=== PATIENT | male | born 1950 | race Caucasian/White ===

== ENCOUNTER 2017-03-09 09:53 | Inpatient (IN) | payer OTHER ==
[~2017-03-09] VITALS: Ht 177.8 cm; Wt 101.4 kg
[~2017-03-09 09:53] MED LIST: CELEBREX PO; EPINEPHRINE 1 MG/ML, 1ML ONE; GINGER PO; IBUP200T64 PO; KETOROLAC 60 MG/2 ML ONE; KRIL1CAP23 PO; ROPIvacaine/PF 0.2%, 20 ML ONE; ROPivacaine/PF 0.2%, 10 ML ONE; SODIUM CHLORIDE 0.9% 100 ML ONE; TRANEXAMIC ACID 100 MG/ML, 10ML ONE; TURMERIC PO; VITAMIN B12 PO; [UNRECOGNIZED DRUG - OTHER] PO; [UNRECOGNIZED DRUG - OTHER] PO
[2017-03-09 10:21] VITALS: BP 167/87
[2017-03-09] MEDS ORDERED: LACTATED RINGERS 1,000 ML IV SCH (10:21)
[2017-03-09] MEDS ORDERED: CELE200C PO (10:21)
[2017-03-09] MEDS ORDERED: TRAM50TA2 PO (10:27)
[2017-03-09] MEDS ORDERED: GABA300C10 PO (10:27)
[2017-03-09] MEDS ORDERED: VANCOMYCIN PER PHARMACY MC PRN (11:00)
[2017-03-09] MEDS ORDERED: VANCOMYCIN 1,800 MG in SODIUM CHLORIDE 0.9% 250 ML IV ONE (11:00)
[2017-03-09] MEDS ORDERED: MIDAZOLAM 1 MG/ML, 2ML ONE ×2 (12:53→13:01)
[2017-03-09] MEDS ORDERED: FENTANYL PF 100 MCG/2ML ONE ×3 (12:53→16:57)
[2017-03-09] MEDS ORDERED: FENTANYL PF 250 MCG/5ML ONE (13:01)
[2017-03-09] MEDS ORDERED: DEXAMETHASONE 4 MG/ML, 1ML ONE (13:01)
[2017-03-09] MEDS ORDERED: SUCCINYLCHOLINE 20 MG/ML, 10ML ONE (13:01)
[2017-03-09] MEDS ORDERED: ROCURONIUM 10 MG/ML,10ML ONE (13:01)
[2017-03-09] MEDS ORDERED: CEFAZOLIN 1,000 MG ONE (13:01)
[2017-03-09] MEDS ORDERED: PROPOFOL 10 MG/ML, 20ML ONE (13:01)
[2017-03-09] MEDS ORDERED: ONDANSETRON 2MG/ML, 2ML ONE ×2 (13:01→17:26)
[2017-03-09] MEDS ORDERED: hydrALAzine 20 MG/ML, 1ML IV PRN (16:00)
[2017-03-09] MEDS ORDERED: ONDANSETRON 2MG/ML, 2ML IVPush PRN (16:00)
[2017-03-09] MEDS ORDERED: OXYcodone 5 MG/5 ML ORAL.SOL UDC PO PRN (16:00)
[2017-03-09] MEDS ORDERED: HYDROmorphone 1 MG/ML, 1ML IV PRN ×2 (16:00→17:00)
[2017-03-09] MEDS ORDERED: METOCLOPRAMIDE 5 MG/ML, 2ML IV PRN (16:00)
[2017-03-09] MEDS ORDERED: LABETALOL 5MG/ML, 20ML IV PRN (16:00)
[2017-03-09] MEDS ORDERED: ACETAMINOPHEN 325 MG TABLET PO PRN (16:00)
[2017-03-09] MEDS: D5%-0.45% NACL 1,000 ML IV SCH ×2 (16:38→23:18)
[2017-03-09] MEDS ORDERED: OXYcodone 5 MG/5 ML ORAL.SOL UDC ONE (16:57)
[2017-03-09] MEDS ORDERED: SENNA/DOCUSATE TABLET PO PRN (17:00)
[2017-03-09] MEDS ORDERED: ONDANSETRON 4 MG TABLET PO PRN (17:00)
[2017-03-09] MEDS ORDERED: MAGNESIUM HYDROXIDE 8%, 30ML UDC PO PRN (17:00)
[2017-03-09] MEDS: OXYcodone IR 5MG TABLET PO SCH ×2 (17:00→21:00)
[2017-03-09] MEDS ORDERED: PROMETHAZINE 12.5 MG SUPP PR PRN (17:00)
[2017-03-09] MEDS ORDERED: ZOLPIDEM 5MG TABLET PO PRN (17:00)
[2017-03-09] MEDS ORDERED: DIAZEPAM 5 MG TABLET PO PRN (17:00)
[2017-03-09] MEDS ORDERED: ONDANSETRON 2MG/ML, 2ML IV PRN (17:00)
[2017-03-09] MEDS ORDERED: BISACODYL 10 MG SUPP PR PRN (17:00)
[2017-03-09] MEDS ORDERED: PROMETHAZINE 25 MG/ML, 1ML IM PRN (17:00)
[2017-03-09] MEDS ORDERED: OXYcodone IR 5MG TABLET PO PRN (17:00)
[2017-03-09] MEDS ORDERED: ALUMINUM/MAG/SIMETHICONE 30 ML UDC PO PRN (17:00)
[2017-03-09] MEDS ORDERED: TRANEXAMIC ACID 2,000 MG in SODIUM CHLORIDE 0.9% 100 ML IVPB ONE (17:15)
[2017-03-09] MEDS: TAMSULOSIN 0.4 MG CAP.ER.24H PO SCH (17:15)
[2017-03-09] MEDS: FENTANYL PF 100 MCG/2ML IV PRN ×2 (17:19→17:30)
[2017-03-09 19:21] VITALS: BP 136/77
[2017-03-09] MEDS: CEFAZOLIN PMX 2GM/50ML 50 ML IVPB SCH (20:29)
[2017-03-09] MEDS: ACETAMINOPHEN 500 MG TABLET PO SCH (20:29)
[2017-03-09] MEDS: ASPIRIN 81 MG TABLET EC PO SCH (20:29)
[2017-03-09] MEDS: DOCUSATE 100 MG CAPSULE PO SCH (20:29)
[2017-03-10] VITALS: BP 120/61
[2017-03-10] MEDS: OXYcodone IR 5MG TABLET PO SCH ×4 (01:02→13:00)
[2017-03-10] MEDS: ACETAMINOPHEN 500 MG TABLET PO SCH ×3 (04:17→20:00)
[2017-03-10] MEDS: CEFAZOLIN PMX 2GM/50ML 50 ML IVPB SCH (04:17)
[2017-03-10] MEDS ORDERED: DEXAMETHASONE 4 MG/ML, 1ML IVPush SCH (06:00)
[2017-03-10] MEDS: ASPIRIN 81 MG TABLET EC PO SCH ×2 (06:29→17:35)
[2017-03-10 07:10] VITALS: BP 137/75
[2017-03-10] MEDS: DOCUSATE 100 MG CAPSULE PO SCH ×2 (08:34→22:49)
[2017-03-10] MEDS: MULTIVITAMINS/MINERALS TABLET PO SCH (08:34)
[2017-03-10] MEDS: TAMSULOSIN 0.4 MG CAP.ER.24H PO SCH (08:34)
[2017-03-10] MEDS ORDERED: HYDROcodone/APAP 5/325 TABLET PO ONE (09:30)
[2017-03-10] MEDS ORDERED: SODIUM CHLORIDE 0.9% 500 ML IV SCH (09:30)
[2017-03-10] MEDS: D5%-0.45% NACL 1,000 ML IV SCH ×2 (12:00→17:35)
[2017-03-10 14:25] VITALS: BP 123/67
[2017-03-10] MEDS ORDERED: HYDROcodone/APAP 5/325 TABLET PO PRN (16:00)
[2017-03-10] MEDS: KETOROLAC 30 MG/1 ML IV SCH (17:35)
[2017-03-10 19:15] VITALS: BP 110/63
[2017-03-11] MEDS: D5%-0.45% NACL 1,000 ML IV SCH ×2 (00:35→07:03)
[2017-03-11] MEDS: KETOROLAC 30 MG/1 ML IV SCH ×2 (01:00→09:15)
[2017-03-11 01:41] VITALS: BP 148/67
[2017-03-11] MEDS: ACETAMINOPHEN 500 MG TABLET PO SCH (04:00)
[2017-03-11] MEDS: ASPIRIN 81 MG TABLET EC PO SCH (05:35)
[2017-03-11 05:42] LABS: HEMATOCRIT 34.6 % (39.2-51.8); HEMOGLOBIN 11.9 g/dL (13.7-18.0)
[2017-03-11] MEDS: TAMSULOSIN 0.4 MG CAP.ER.24H PO SCH (07:04)
[2017-03-11 08:13] VITALS: BP 143/72
[2017-03-11] MEDS: DOCUSATE 100 MG CAPSULE PO SCH (09:15)
[2017-03-11] MEDS: MULTIVITAMINS/MINERALS TABLET PO SCH (09:15)
[2017-03-11 11:30] VITALS: BP 143/70
== END 2017-03-11 12:05 | disposition home or self-care (01) | DRG 468 ==
LOC: ORIP 09:53 → EDSTATUS 12:45 → 4NOR 18:17 → DCLOUNGE 03-11 11:49
PROVIDERS: ADMIT Orthopaedic Surgery; ATTEND Orthopaedic Surgery
PROC: 0SPB0JZ Removal of Synthetic Substitute from Left Hip Joint, Open Approach (ICD-10-PCS; 2017-03-09)
PROC: 01NF0ZZ Release Sciatic Nerve, Open Approach (ICD-10-PCS; 2017-03-09)
PROC: 0SRB02A Replacement of Left Hip Joint with Metal on Polyethylene Synthetic Substitute, Uncemented, Open Approach (ICD-10-PCS; principal; 2017-03-09 12:45)
DX: T84.031A Mechanical loosening of internal left hip prosthetic joint, initial encounter (principal); Q65.89 Other specified congenital deformities of hip; Y83.8 Other surgical procedures as the cause of abnormal reaction of the patient, or of later complication, without mention of misadventure at the time of the procedure; Z88.5 Allergy status to narcotic agent
CPT/HCPCS: 36415; 72170; 85014; 85018; 86850; 86900; C1713; J0171; J0690; J1100; J1885; J2250; J2405; J2550; J2704; J2795; J3010; J3370; C1762; C1776; J0330; J7040; J7050; J7120